=== PATIENT | female | born 1970 | race Caucasian/White ===

== ENCOUNTER 2018-11-09 10:51 | Emergency (ER) | payer OTHER ==
[~2018-11-09] VITALS: Ht 162.6 cm; Wt 58.1 kg
[2018-11-09 10:56] VITALS: Ht 162.6 cm; Wt 58.1 kg
[2018-11-09 12:59] VITALS: BP 151/89
== END 2018-11-09 12:59 | disposition home or self-care (01) ==
LOC: ED 10:51
DX: S13.4XXA Sprain of ligaments of cervical spine, initial encounter (principal); V49.9XXA Car occupant (driver) (passenger) injured in unspecified traffic accident, initial encounter; Y93.89 Activity, other specified; Y92.413 State road as the place of occurrence of the external cause; Y99.8 Other external cause status
CPT/HCPCS: J1885